=== PATIENT | male | born 1945 | race Caucasian/White ===

== ENCOUNTER 2020-11-15 04:56 | Emergency (ER) | payer OTHER ==
[2020-11-15 05:33] LABS: ALBUMIN 3.9 g/dL (3.4-5.0); BILIRUBIN - TOTAL 0.4 mg/dL (0.2-1.0); BUN/CREAT RATIO (CALC) 16.8 RATIO; CREATININE 1.37 mg/dL (0.67-1.17); GLOBULIN (CALCULATION) 3.6 g/dL; POTASSIUM 3.9 mmol/L (3.5-5.1); TOTAL PROTEIN 7.5 g/dL (6.4-8.2)
[2020-11-15 05:41] LABS: BASOPHIL 0.4 % (0-2); EOSINOPHIL 2.6 % (0-7); HCT 42.5 % (42.0-52.0); HGB 14.5 g/dl (13.2-18.0); LYMPHOCYTE 23.1 % (15-48); MCHC 34.1 g/dL (32.0-36.0); MCV 87.8 fL (78.0-100.0); MPV 10.3 fL (6.0-9.5); NEUTROPHIL 66.6 % (41-80); NRBC 0; PLT 229 K/uL (150-400); RBC 4.84 M/uL (4.70-6.00); RDW 13.4 % (11.5-14.0); WBC 7.6 K/uL (4.0-10.5)
[2020-11-15 05:46] LABS: INR 1.01 (0.9-1.2); PROTHROMBIN TIME 12.6 SECONDS (11.4-13.6); PTT 30.3 SECONDS (22.2-34.7)
== END 2020-11-15 05:51 | disposition other institution (70) ==
LOC: FER 04:56
PROVIDERS: Emergency Medicine
DX: I21.29 ST elevation (STEMI) myocardial infarction involving other sites (principal); U07.1 COVID-19; E11.9 Type 2 diabetes mellitus without complications; I10 Essential (primary) hypertension; E78.5 Hyperlipidemia, unspecified
CPT/HCPCS: 36415; 71045; 80053; 84484; 85025; 85610; 85730; 93005; J1644; J2270; J2405; J7030; U0002